=== PATIENT | female | born 1945 ===

== ENCOUNTER 2021-01-26 10:30 | Inpatient (IN) | payer OTHER ==
[~2021-01-26] VITALS: Ht 157.5 cm; Wt 43.1 kg
[2021-01-26] MEDS ORDERED: NORVASC5 MG PO (13:35)
[2021-01-26] MEDS ORDERED: D3 + K2 DOTS 11 EACH PO (13:35)
[2021-02-03] MEDS ORDERED: KETO10TA2 PO (08:40)
[2021-02-03] MEDS ORDERED: NORFLEX100MG PO (08:40)
[2021-02-03] MEDS ORDERED: INTESTINEX680 M1 PO (08:40)
[2021-02-03] MEDS ORDERED: ULTRAM50 MG PO (08:41)
== END 2021-02-03 08:55 | disposition home or self-care (01) | DRG 331 ==
LOC: O/R 02-01 06:00 → SURH 02-01 10:30 → SURG 02-01 17:18
PROVIDERS: ADMIT Surgery; ATTEND Surgery
PROC: 0DTP4ZZ Resection of Rectum, Percutaneous Endoscopic Approach (ICD-10-PCS; 2021-02-01)
PROC: 0DJD8ZZ Inspection of Lower Intestinal Tract, Via Natural or Artificial Opening Endoscopic (ICD-10-PCS; 2021-02-01)
PROC: 4A12X4Z Monitoring of Cardiac Electrical Activity, External Approach (ICD-10-PCS; 2021-02-01)
PROC: 0DBN4ZZ Excision of Sigmoid Colon, Percutaneous Endoscopic Approach (ICD-10-PCS; principal; 2021-02-01 16:30)
DX: K57.30 Diverticulosis of large intestine without perforation or abscess without bleeding (principal); I11.9 Hypertensive heart disease without heart failure; K66.0 Peritoneal adhesions (postprocedural) (postinfection); D75.1 Secondary polycythemia; K62.4 Stenosis of anus and rectum